=== PATIENT | male | born 1970 | race Hispanic/Latino ===

== ENCOUNTER 2019-05-10 19:03 | Emergency (ER) | payer OTHER ==
[2019-05-10 19:26] LABS: BASOPHILS % (AUTO) 0.2 % (0.0-5.0); EOSINOPHILS % (AUTO) 0.1 % (0.0-8.0); LYMPHOCYTES % (AUTO) 5.4 % (21.0-51.0); MEAN CORPUSCULAR HEMOGLOBIN 28.8 pg (27.0-33.0); MEAN CORPUSCULAR HGB CONC 33.6 g/dL (32.0-36.0); MEAN CORPUSCULAR VOLUME 85.8 fL (79-99); MONOCYTES % (AUTO) 5.9 % (3.0-13.0); NEUTROPHILS % (AUTO) 88.2 % (40.0-77.0); PLATELET COUNT (AUTO) 259 K/uL (130-400); RED BLOOD CELL COUNT(AUTO) 5.13 MIL/uL (4.50-6.20); RED CELL DISTRIBUTION WIDTH 12.5 % (11.0-15.5); WHITE BLOOD COUNT (AUTO) 12.5 K/uL (4.8-10.8)
[2019-05-10 19:38] LABS: CREATININE 1.2 mg/dL (0.5-1.5); POTASSIUM 3.6 mmol/L (3.5-5.1)
[2019-05-10 19:43] LABS: ALBUMIN 3.9 g/dL (3.5-5.0); BILIRUBIN,TOTAL 0.4 mg/dL (0.2-1.0); TOTAL PROTEIN, SERUM 7.5 g/dL (6.0-8.3)
[2019-05-10] MEDS ORDERED: ONDANSETRON HCL 4 MG/2 ML VIAL ONE (19:44)
[2019-05-10] MEDS ORDERED: ACETAMINOPHEN EXTRA STRENGTH 500 MG TABLET ONE (19:45)
[2019-05-10] MEDS ORDERED: FAMOTIDINE/PF 20 MG/2 ML VIAL IV ONE (19:45)
[2019-05-10] MEDS ORDERED: SODIUM CHLORIDE 0.9% 1000ML 1,000 ML IV ONE ×3 (19:46→21:31)
[2019-05-10] MEDS ORDERED: CEFTRIAXONE SODIUM 1 GM ONE (21:17)
[2019-05-10] MEDS ORDERED: IBUPROFEN 400 MG TABLET ONE (21:17)
[2019-05-10] MEDS ORDERED: IBUPROFEN 200 MG TAB ONE (21:17)
[2019-05-10] MEDS ORDERED: LEVOFLOXACIN 500 MG TABLET ONE (22:48)
== END 2019-05-10 23:14 | disposition home or self-care (01) ==
LOC: EDH 19:03
DX: E86.0 Dehydration (principal); K52.9 Noninfective gastroenteritis and colitis, unspecified; I10 Essential (primary) hypertension; E78.00 Pure hypercholesterolemia, unspecified; Z90.49 Acquired absence of other specified parts of digestive tract
CPT/HCPCS: 36415; 80053; 82550; 83605; 83690; 84484; 85025; 87040 ×2; 93005; 96361; 96374; 96375; 99285; J0696; J2405; J3490; J7030 ×3